=== PATIENT | male | born 1980 | race Caucasian/White ===

== ENCOUNTER → 2021-09-02 | Day surgery (SDC) | payer BC ==
[~2021-09-02] MED LIST: Bupivacaine 0.25% 10 ML SDV ONE; EPINEPHrine 1 MG/ML 30 ML MDV IRR SCH; HYDROmorphone 0.5 MG/0.5 ML Syringe ONE; Ketorolac 30 MG/ML SDV ONE; Lactated Ringers 1,000 ML IV SCH; Lactated Ringers 1,000 ML ONE; Lidocaine 1% 4 ML ONE; Lidocaine 1%/Sod Bicarbonate in NS 8.4% 1 ML Syringe IDERM PRN; Midazolam 1 MG/ML 2 ML SDV ONE; Ondansetron 4 MG/2 ML SDV ONE; Propofol 200 MG/20 ML SDV ONE; Sodium Chloride 0.9% 10 ML Syringe FLUSH PRN; ceFAZolin 1 GM Vial ONE; fentaNYL 100 MCG/2 ML SDV IVPUSH PRN; fentaNYL 250 MCG/5 ML SDV ONE
--- NOTE | 2021-09-02 13:31 | PCM.PREANE ---
Preanesthetic Assessment - Procedure Proposed Procedure: Right knee video arthroscopy - Anesthesia/Transfusion/Family Hx Anesthesia History: Prior Anesthesia Without Reaction Family History of Anesthesia Reaction: No Transfusion History: No Prior Transfusion(s) - Review of Systems General: No Symptoms Pulmonary: No Symptoms Cardiovascular: No Symptoms Gastrointestinal: No Symptoms Neurological: No Symptoms Other: Reports: None - Physical Assessment NPO Status Date: 09/01/21 NPO Status Time: 00:00 Height: 1.83 m Weight: 138.2 kg ASA Class: 2 Mental Status: Alert & Oriented x3 Airway Class: Mallampati = 2 Dentition: Reports: Normal Dentition Thyro-Mental Finger Breadths: 3 Mouth Opening Finger Breadths: 3 ROM/Head Extension: Full Lungs: Clear to Auscultation, Normal Respiratory Effort Cardiovascular: Regular Rate, Regular Rhythm - Lab Values: Laboratory Last Values SARS-CoV-2 RNA ([facility]) Negative (NEGATIVE) 09/02/21 12:00 - Allergies Allergies/Adverse Reactions: Allergies Allergy/AdvReac Type Severity Reaction Status Date / Time bee venom protein (honey bee) Allergy Cannot Verified 09/01/21 13:45 Remember - Anesthesia Plan Pre-Op Medication Ordered: None - Acknowledgements Anesthesia Type Planned: General Anesthesia Pt an Appropriate Candidate for the Planned Anesthesia: Yes Alternatives and Risks of Anesthesia Discussed w Pt/Guardian: Yes Pt/Guardian Understands and Agrees with Anesthesia Plan: Yes PreAnesthesia Questionnaire HEENT History: Reports: None Cardiovascular History: Reports: None Respiratory History: Reports: None Gastrointestinal History: Reports: None Genitourinary History: Reports: None MEDICAL REVIEW SPECIALIST History: Reports: None Musculoskeletal History: Reports: None Neurological History: Reports: None Psychiatric History: Reports: None Endocrine/Metabolic History: Reports: None Hematologic History: Reports: None Immunologic History: Reports: None Oncologic (Cancer) History: Reports: None Dermatologic History: Reports: None - Past Surgical History Head Surgeries/Procedures: Reports: None HEENT Surgical History: Reports: Tonsillectomy Cardiovascular Surgical History: Reports: None Respiratory Surgical History: Reports: None GI Surgical History: Reports: None Male Surgical History: Reports: Vasectomy Endocrine Surgical History: Reports: None Neurological Surgical History: Reports: None Musculoskeletal Surgical History: Reports: None Oncologic Surgical History: Reports: None Dermatological Surgical History: Reports: None - SUBSTANCE USE Tobacco Use Status *Q: Former Tobacco User Tobacco Use Within Last Twelve Months: No Second Hand Smoke Exposure: No Days Per Week of Alcohol Use: 1 Number of Drinks Per Day: 2 Total Drinks Per Week: 2 Recreational Drug Use History: No - HOME MEDS Home Medications: Home Meds Aspirin [Aspirin EC] 325 mg PO BID #84 tab 09/01/21 [Rx] Hydrocodone/Acetaminophen [HYDROcodone-Acetaminophen 5-325 MG] 1 - 2 each PO Q6H PRN #30 tablet 09/01/21 [Rx] - CURRENT (IN HOUSE) MEDS Current Meds: Current Medications Epinephrine HCl (Epinephrine 1 Mg/Ml 30 Ml Mdv) 3 mg IRR ONETIME DENNIS Stop: 09/02/21 16:00 Lactated Ringer's (Ringers, Lactated) 1,000 mls @ 125 mls/hr IV ASDIRECTED DENNIS Stop: 09/02/21 23:00 Lidocaine/Sodium Bicarbonate (Lidocaine 1%/Sod Bicarbonate In Ns 8.4% 1 Ml Syringe) 0.25 ml IDERM ONETIME PRN PRN Reason: Prior to IV Start Stop: 09/02/21 23:00 Sodium Chloride (Sodium Chloride 0.9% 10 Ml Syringe) 10 ml FLUSH ASDIRECTED PRN PRN Reason: Keep Vein Open Stop: 09/02/21 23:00
--- NOTE | 2021-09-02 15:01 | PCM.POSTAN ---
POST ANESTHESIA ASSESSMENT - MENTAL STATUS Mental Status: Alert, Oriented - VITAL SIGNS Vital Signs: Last Vital Signs Temp 36.7 C 09/02/21 14:53 Pulse 76 09/02/21 14:53 Resp 21 H 09/02/21 14:53 BP 115/71 09/02/21 14:53 Pulse Ox 94 L 09/02/21 14:53 - RESPIRATORY Respiratory Status: Respiratory Rate WNL, Airway Patent, O2 Saturation Stable, Supplemental Oxygen - CARDIOVASCULAR CV Status: Pulse Rate WNL, Blood Pressure Stable - GASTROINTESTINAL GI Status: No Symptoms - PAIN Pain Score: 0 - POST OP HYDRATION Hydration Status: Adequate & Stable - OBSERVATIONS Free Text/Narrative:: no anesthesia complications noted
--- NOTE | 2021-09-02 15:20 | PCM48HPAN ---
Post Anesthesia Note - EVALUATION WITHIN 48HRS OF ANESTHETIC Vital Signs in Normal Range: Yes Patient Participated in Evaluation: Yes Respiratory Function Stable: Yes Airway Patent: Yes Cardiovascular Function Stable: Yes Hydration Status Stable: Yes Pain Control Satisfactory: Yes Nausea and Vomiting Control Satisfactory: Yes Mental Status Recovered: Yes Vital Signs: Last Vital Signs Temp 36.7 C 09/02/21 15:08 Pulse 74 09/02/21 15:08 Resp 13 09/02/21 15:08 BP 132/79 09/02/21 15:08 Pulse Ox 97 09/02/21 15:08
--- NOTE | 2021-09-13 17:49 | PCM.OPNOTE ---
- General Post-Op/Procedure Note Date of Surgery/Procedure: 09/02/21 Operative Procedure(s): right knee video arthroscopy with partial medial meniscecotmy and chondroplasty of medial femoral condyle Pre Op Diagnosis: right knee bucket handkle meniscus tear with grade 3 chondromalacia of medial femoral condyle Post-Op Diagnosis: Same Anesthesia Technique: General LMA, Local Primary Surgeon: Júnior Abreu Anesthesia Provider: Osmani Amanda Brooch Maker Novelty: Althea Avalos in mLs: 5 Complications: None Condition: Good
--- NOTE | 2021-09-13 18:37 | OR ---
DATE OF OPERATION: 09/02/2021 SURGEON: Júnior Abreu MD OPERATION PERFORMED: Right knee video arthroscopy with partial medial meniscectomy and chondroplasty of medial femoral condyle. PREOPERATIVE DIAGNOSIS: Right knee bucket-handle medial meniscus tear with grade 3 chondromalacia of medial femoral condyle. POSTOPERATIVE DIAGNOSIS: Right knee bucket-handle medial meniscus tear with grade 3 chondromalacia of medial femoral condyle. ANESTHESIA: General LMA with local. ANESTHESIA PROVIDER: Osmani Amanda CRNA. ASSISTANTS: Althea Avalos PA-C. ESTIMATED BLOOD LOSS: Less than 5 mL. COMPLICATIONS: None. CONDITION: Stable. DESCRIPTION OF PROCEDURE: The patient was identified in the preoperative holding area. Proper site was marked and identified by the surgeon. The patient was taken back to the operating theater where after adequate anesthesia, left lower extremity was placed in a well leg nguyen. Right lower extremity had a nonsterile tourniquet applied. It was then placed in a C-clamp nguyen. Foot of bed was then lowered. Right lower extremity was then sterilely prepped and draped in the usual sterile fashion. OR time-out was performed. The patient received 2 g IV Ancef. Right lower extremity was exsanguinated. Tourniquet was insufflated to 250 mmHg. Anterolateral portal incision was made. Scope trocar was introduced. The patient was noted to have grade 2 chondromalacia of the patellofemoral joint. Attention was turned to medial compartment. With the use of a spinal needle, anteromedial portal was created. The patient was noted to have a degenerative bucket-handle meniscal tear with no chance of repair. At this time, the bucket- handle meniscus tear was resected for a near-complete subtotal meniscectomy. The patient was also noted to have grade 3/4 chondromalacia of the medial femoral condyle as well as grade 1/2 chondromalacia of the tibial plateau. There was noted to be loose cartilaginous fragments, so at this time a chondroplasty of the loose fragments was done of the medial femoral condyle. ACL was intact in the notch. Lateral compartment showed minimal changes. I did do a small chondroplasty of the patella as well of any loose fragments. Excess saline was drained from the knee. 3-0 nylon sutures were placed. 0.25% Marcaine was injected around the portal incisions. The patient was placed in a sterile soft dressing and sent to PACU in stable condition. MMODAL /[id number]
== END | disposition home or self-care (01) ==
LOC: JD.SDS 11:53
PROVIDERS: ATTEND Orthopaedic Surgery
DX: S83.211A Bucket-handle tear of medial meniscus, current injury, right knee, initial encounter (principal); M94.261 Chondromalacia, right knee; Z87.891 Personal history of nicotine dependence; Z91.030 Bee allergy status; Z98.890 Other specified postprocedural states; M23.91 Unspecified internal derangement of right knee; Z01.812 Encounter for preprocedural laboratory examination; Z20.822 Contact with and (suspected) exposure to COVID-19
CPT/HCPCS: 29880; 87635; J0690; J1170; J1885; J2250; J2405; J2704; J3010; J3490; J7120; 01400; U0002

== ENCOUNTER 2025-04-04 08:37 | Day surgery (SDC) | payer BC, OTHER ==
[~2025-04-04 08:37] MED LIST changes: -Bupivacaine 0.25% 10 ML SDV ONE; -EPINEPHrine 1 MG/ML 30 ML MDV IRR SCH; +EPINEPHrine 1 MG/ML SDV ONE; -HYDROmorphone 0.5 MG/0.5 ML Syringe ONE; -Ketorolac 30 MG/ML SDV ONE; -Lactated Ringers 1,000 ML IV SCH; -Lactated Ringers 1,000 ML ONE; -Lidocaine 1% 4 ML ONE; -Lidocaine 1%/Sod Bicarbonate in NS 8.4% 1 ML Syringe IDERM PRN; -Midazolam 1 MG/ML 2 ML SDV ONE; -Ondansetron 4 MG/2 ML SDV ONE; -Propofol 200 MG/20 ML SDV ONE; -Sodium Chloride 0.9% 10 ML Syringe FLUSH PRN; -ceFAZolin 1 GM Vial ONE; -fentaNYL 100 MCG/2 ML SDV IVPUSH PRN; -fentaNYL 250 MCG/5 ML SDV ONE
[2025-04-04] MEDS: Lactated Ringers 1,000 ML IV SCH (09:00)
[2025-04-04] MEDS ORDERED: propofoL 500 MG/50 ML 50 ML ONE ×2 (09:20→10:12)
[2025-04-04] MEDS ORDERED: fentaNYL 250 MCG/5 ML SDV ONE (09:24)
[2025-04-04] MEDS ORDERED: Midazolam 1 MG/ML 2 ML SDV ONE (09:25)
[2025-04-04] MEDS ORDERED: ceFAZolin 2 GM Vial ONE ×2 (09:26→09:43)
[2025-04-04] MEDS ORDERED: Ondansetron 4 MG/2 ML SDV ONE (09:45)
[2025-04-04] MEDS ORDERED: Dexamethasone 4 MG/ML 5 ML MDV ONE (09:45)
[2025-04-04] MEDS ORDERED: Sodium Chloride 0.9% 10 ML Syringe FLUSH PRN (09:52)
[2025-04-04] MEDS ORDERED: HYDROmorphone 0.5 MG/0.5 ML Syringe ONE ×2 (10:18)
[2025-04-04] MEDS ORDERED: Lactated Ringers 1,000 ML ONE (10:20)
[2025-04-04] MEDS: Bupivacaine 0.25% 10 ML SDV ONE (10:33)
[2025-04-04] MEDS ORDERED: fentaNYL 100 MCG/2 ML SDV IVPUSH PRN (11:13)
[2025-04-04] MEDS ORDERED: HYDROmorphone 0.5 MG/0.5 ML Syringe IVPUSH PRN (11:13)
[2025-04-04] MEDS ORDERED: Ondansetron 4 MG/2 ML SDV IVPUSH PRN (11:13)
[2025-04-04] MEDS: Acetaminophen/HYDROcodone 325-5 MG Tab PO PRN (11:15)
[2025-04-04] MEDS ORDERED: Sodium Chloride 0.9% 10 ML Syringe FLUSH SCH (21:00)
== END 2025-04-04 12:36 | disposition home or self-care (01) ==
LOC: JD.SDS 08:37
PROVIDERS: ATTEND Orthopaedic Surgery
DX: S83.242A Other tear of medial meniscus, current injury, left knee, initial encounter (principal); M94.262 Chondromalacia, left knee; Z91.030 Bee allergy status; Z87.891 Personal history of nicotine dependence; X58.XXXA Exposure to other specified factors, initial encounter
CPT/HCPCS: 29881; A9270; J0171; J0665; J0690; J1100; J2250; J2405; J2704; J3010; J7120; 01400